=== PATIENT | female | born 1980 | race Caucasian/White ===

== ENCOUNTER 2020-12-11 14:37 | Emergency (ER) | payer MEDICARE, SELFPAY ==
[2020-12-11 14:40] VITALS: BP 106/66; PULSE 88; RESP 14; TEMP 36.9; O2SAT 99; BMI 33.0
--- NOTE | 2020-12-11 14:44 | DI.RAD.S_ITS ---
PROCEDURE: XR KNEE RT 3V INDICATIONS: knee pain and swelling TECHNIQUE: 3 views of the knee were acquired. COMPARISON: None. FINDINGS: Bones: No fractures or dislocations. No suspicious bony lesions. Soft tissues: Minimal joint effusion. No suspicious soft tissue calcifications. IMPRESSION: No visualized acute fracture or dislocation. However, if clinical concern and/or pain persist, short interval imaging followup in 7-10 days is recommended, as occult injury cannot be definitively excluded. Dictated by: Theresa Garcia M.D. on 12/11/2020 at 16:05 Approved by: Theresa Garcia M.D. on 12/11/2020 at 16:07
[2020-12-11] MEDS: KETOROLAC 30 MG/ML VIAL IM (15:10)
[2020-12-11] MEDS: LIDOCAINE PATCH 1 EACH ADH..PATCH TOP (15:11)
--- NOTE | 2020-12-11 17:04 | ED_ITS ---
HPI - Extremity Problem <AZIZA Maher - Last Filed: 12/11/20 17:11> General Chief complaint: Extremity Problem,Nontraumatic Stated complaint: rt knee pain and swelling [id number] Time Seen by Provider: 12/11/20 14:41 Source: patient Mode of arrival: Ambulatory Limitations: no limitations History of Present Illness HPI Narrative: Smoker who presents with a chief complaint of right knee pain and swelling. She states the pain is on the outside, worse with motion. She has been going to the gym, doing squats and lunges. She denies any specific recent injury, though notes that she has remote injury of twisting her knee. She has been using ibuprofen, last taken yesterday. States that she had an x-ray taken many years ago. Related Data Previous Rx's Medication Instructions Recorded ketorolac 10 mg tablet 10 mg PO TID PRN 5 Days #15 tab 12/11/20 lidocaine 5 % topical patch 1 patch TOPICAL DAILY PRN #15 ea 12/11/20 Allergies Allergy/AdvReac Type Severity Reaction Status Date / Time No Known Drug Allergies Allergy Verified 12/11/20 14:45 Review of Systems <AZIZA Maher - Last Filed: 12/11/20 17:11> Review of Systems Narrative: GENERAL: Denies chills, fatigue, malaise, fever, sweats. HEENT: Denies sinus pain, ear pain, sore throat, difficulty swallowing, dizziness. RESPIRATORY: Denies dyspnea, cough, wheezing, hemoptysis, sputum. CARDIOVASCULAR: Denies chest pain, palpitations, orthopnea, edema, GASTROINTESTINAL: Denies nausea, vomiting, abdominal pain, diarrhea, constipation, melena. : Denies dysuria, frequency, incontinence, hematuria, urinary retention. MUSCULOSKELETAL: See HPI SKIN: Denies rash, skin lesions, or other NEUROLOGIC: Denies weakness, headache, numbness, change in speech, confusion, seizures, incoordination. PSYCHIATRIC: No concerning psychosocial issues. 12 point review of systems is negative except for those stated above Patient History <AZIZA Maher - Last Filed: 12/11/20 17:11> Social History Smoking Status: Current every day smoker Smoking Status: Current every day smoker tobacco type: vaping alcohol intake frequency: holidays/special occasions only Substance Use Type: does not use Exam <AZIZA Maher Last Filed: 12/11/20 17:11> Narrative Exam Narrative: GENERAL: This is a well-nourished, well-developed patient, in no acute distress HEAD: Atraumatic. Normocephalic. No temporal or scalp tenderness. EYES: Pupils equal round and reactive. Extraocular motions intact. No scleral icterus. No injection or drainage. ENT: Nose without bleeding, purulent drainage or septal hematoma. Wearing a mask. Airway patent. NECK: Trachea midline. No JVD or lymphadenopathy. Supple, nontender, no meningeal signs. CARDIOVASCULAR: Regular rate and rhythm RESPIRATORY: No cough. No increased respiratory effort. No accessory muscle use. EXTREMITIES: Pain palpation of lateral aspect of right knee, just lateral to patella, also tender to palpation distal to patella. Able to lift entire right leg off of stretcher. Able to flex and extend leg fully. No instability palpated on varus, valgus, anterior posterior drawer test. No clicking or pain on Joseph's. Positive pedal pulses on right foot. NEURO: AOx3. SKIN: No rash or erythema on visible skin Initial Vital Signs Initial Vital Signs: Vital Signs Temperature 98.4 F 12/11/20 14:40 Pulse Rate 88 12/11/20 14:40 Respiratory Rate 14 12/11/20 14:40 Blood Pressure 106/66 12/11/20 14:40 Pulse Oximetry 99 12/11/20 14:40 <Vic Torrez DO - Last Filed: 12/11/20 17:34> Initial Vital Signs Initial Vital Signs: Vital Signs Temperature 98.4 F 12/11/20 14:40 Pulse Rate 88 12/11/20 14:40 Respiratory Rate 14 12/11/20 14:40 Blood Pressure 106/66 12/11/20 14:40 Pulse Oximetry 99 12/11/20 14:40 Scores <AZIZA Maher Last Filed: 12/11/20 17:11> GCS [place] coma scale eye opening: Spontaneous [place] coma scale verbal response: Orientated [place] coma scale motor response: Obey commands [place] coma scale total score: 15 <Vic Torrez DO - Last Filed: 12/11/20 17:34> GCS [place] coma scale total score: 15 Course <AZIZA Maher Filed: 12/11/20 17:11> Orders Ordered: ED Orders 12/11/20 14:44 XR knee RT 3V Stat Discontinued Medications Ketorolac Tromethamine (Ketorolac 30 Mg/Ml Vial) 30 mg IM NOW ONE Stop: 12/11/20 14:48 Last Admin: 12/11/20 15:10 Dose: 30 mg Documented by: DOMINIQUE Lidocaine (Lidocaine Patch 1 Each Adh..Patch) 1 each TOP NOW ONE Stop: 12/11/20 14:48 Last Admin: 12/11/20 15:11 Dose: 1 each Documented by: DOMINIQUE Vital Signs Vital signs: Vital Signs - 8 hr 12/11/20 14:40 Temperature 98.4 F Pulse Rate 88 Respiratory Rate 14 Blood Pressure 106/66 Pulse Oximetry 99 <Vic Torrez DO - Last Filed: 12/11/20 17:34> Orders Ordered: ED Orders 12/11/20 14:44 XR knee RT 3V Stat Discontinued Medications Ketorolac Tromethamine (Ketorolac 30 Mg/Ml Vial) 30 mg IM NOW ONE Stop: 12/11/20 14:48 Last Admin: 12/11/20 15:10 Dose: 30 mg Documented by: DOMINIQUE Lidocaine (Lidocaine Patch 1 Each Adh..Patch) 1 each TOP NOW ONE Stop: 12/11/20 14:48 Last Admin: 12/11/20 15:11 Dose: 1 each Documented by: DOMINIQUE Vital Signs Vital signs: Vital Signs - 8 hr 12/11/20 14:40 Temperature 98.4 F Pulse Rate 88 Respiratory Rate 14 Blood Pressure 106/66 Pulse Oximetry 99 MDM - Extremity (Nontraumatic) <AZIZA Maher - Last Filed: 12/11/20 17:11> Imaging Data Extremity x-ray #1: Radiologist's Impression: [address] [place] [id number] XRay Report Signed Patient: Taylor Colby MR#: [id number] : 1980 Acct:[id number] Age/Sex: 39 / F Date of Service: 12/11/20 Loc: ED Accession Number: [id number] ?? Procedure: XR knee RT 3V Ordering Provider: Christina Perea PROCEDURE:? XR KNEE RT 3V ? INDICATIONS:? knee pain and swelling ? TECHNIQUE:? 3 views of the knee were acquired.? ? COMPARISON:? None. ? FINDINGS:? ? Bones:? No fractures or dislocations.? No suspicious bony lesions.? ? Soft tissues:? Minimal joint effusion.? No suspicious soft tissue calcifications.? ? ? IMPRESSION:? No visualized acute fracture or dislocation. However, if clinical concern and/or pain persist, short interval imaging followup in 7-10 days is recommended, as occult injury cannot be definitively excluded. ? ? Dictated by: Theresa Garcia M.D. on 12/11/2020 at 16:05 ? ? Approved by: Theresa Garcia M.D. on 12/11/2020 at 16:07?? MDM Narrative Medical decision making narrative: The patient is a 31-year-old female who presents with a chief complaint of right knee pain for the past several days. She is neurovascularly intact. She is ambulatory. X-ray is no acute findings. She feels improved after the above-stated therapies. She states that she does not want us to rapid here, she will do that at home. Discussed at length rest ice compression elevation, prescription provided, discussed at length follow up with primary care provider in the next few days. Contact given to [facility] health human resources office assistant. Patient has no questions or concerns upon discharge states understanding return precautions as well as follow-up care. Discharge Plan Departure Patient Disposition: Home Clinical Impression: Knee pain, right Qualifiers: Chronicity: acute Qualified Code(s): M25.561 - Pain in right knee Instructions: How To Perform RICE (Rest, Ice, Compress, Elevate), DI for Knee Pain Activity Restrictions/Additional Instructions: As I discussed, your x-ray shows no acute fracture. This does not rule out a soft tissue injury such as a ligament or tendon injury. It is important that you follow up with primary care provider, especially if worsening or no improvement. There can be fractures that did not show up on initial x-ray. Please use rest ice compression elevation. I sent 2 prescriptions to [facility] [place]. This includes the lidocaine pain patch which she can apply to your knee for 12 hours at a time. I also sent a prescription of ketorolac or Toradol. This is an NSAID. Do not combine with any other NSAIDs such as ibuprofen Aleve etcetera please take this with food. Please follow up with primary care provider. I have given contact information to the [facility] human resources office assistant, who can help you identify a primary care provider accepting new patients Prescriptions: New lidocaine 5 % adhesive patch,medicated 1 patch topical DAILY PRN (Reason: pain) Qty: 15 RF: 0 ketorolac 10 mg tablet 10 mg PO TID PRN (Reason: pain) 5 Days Qty: 15 RF: 0 Referrals: [facility] [Outside] <Vic Torrez, DO - Last Filed: 12/11/20 17:34> Cosign ED Attending Cosignature Attestation: Dr Torrez Co-Sign Statement: I was available for consultation during this patient's emergency department visit. This chart is signed by myself for administrative purposes only. I did not have direct contact with this patient during this visit. They were seen independently by the APC.
== END 2020-12-11 17:04 | disposition home or self-care (01) ==
PROVIDERS: Emergency Provider Nurse Practitioner Family
DX: M25.561 Pain in right knee (principal)
CPT/HCPCS: 73562; 99283; 99284; J1885

== ENCOUNTER 2021-04-21 14:02 | Emergency (ER) | payer MEDICARE, OTHER, SELFPAY ==
[2021-04-21 14:10] VITALS: BP 146/90; PULSE 95; RESP 18; TEMP 36.7; O2SAT 99
[2021-04-21 14:44] LABS: COVID19 -Nasal RAPID Negative (Negative)
--- NOTE | 2021-04-21 15:21 | ED.HA ---
HPI - Headache <Eduard Ivy PA-C - Last Filed: 04/21/21 19:43> General Chief Complaint: Headache Stated Complaint: Headache,Cough,Chest Pain,COVID Exposure Time Seen by Provider: 04/21/21 15:15 Mode of arrival: Ambulatory History of Present Illness HPI Narrative: Patient is a 40-year-old female presenting to the emergency department today for a COVID-19 test. Patient states that she has been exposed to family with COVID-19, noting that her knees was recently diagnosed. She states that she has experienced a persistent headache for the past few days. Patient denies fever, chills, chest pain, cough, shortness of breath, nausea, vomiting, diarrhea, abdominal pain, dysuria, hematuria, sore throat, earache, or any other concerning symptoms. No further concerns were voiced at this time. Related Data Previous Rx's Medication Instructions Recorded lidocaine 5 % topical patch 1 patch TOPICAL DAILY PRN #15 ea 12/11/20 Allergies Allergy/AdvReac Type Severity Reaction Status Date / Time No Known Drug Allergies Allergy Verified 12/11/20 14:45 Review of Systems <Eduard Ivy PA-C - Last Filed: 04/21/21 19:43> Constitutional Constitutional: Denies chills, Denies fatigue, Denies fever(s), Denies frequent falls, Reports headache(s), Denies lethargy and Denies weakness Eyes Eyes: Denies loss of vision ENT Ears, Nose, Mouth, and Throat: Denies change in voice, Denies dizziness, Reports headache(s), Denies neck pain, Denies sore throat and Denies throat swelling Cardiovascular Cardiovascular: Denies chest pain, Denies irregular heart rhythm, Denies lightheadedness, Denies palpitations, Denies dyspnea, Denies dyspnea on exertion and Denies orthopnea Respiratory Respiratory: Denies cough, Denies dyspnea, Denies dyspnea on exertion and Denies wheezing Gastrointestinal Gastrointestinal: Denies abdominal pain, Denies change in bowel habits, Denies diarrhea, Denies nausea and Denies vomiting Genitourinary Genitourinary: Denies hematuria, Denies flank pain, Denies urinary incontinence and Denies urinary urgency Musculoskeletal Musculoskeletal: Denies back pain, Denies muscle weakness, Denies neck pain, Denies numbness and Denies tingling Integumentary/Breasts Skin/Breast: Denies pruritus, Denies erythema, Denies rash and Denies wounds Neurologic Neurologic: Denies behavioral changes, Denies confusion, Denies dizziness, Denies frequent falls, Reports headache(s), Denies loss of vision, Denies numbness, Denies tingling and Denies weakness Psychiatric Psychiatric: Denies behavioral changes and Denies confusion Endocrine Endocrine: Denies fatigue and Denies palpitations Allergic/Immunologic Allergic/Immunologic: Denies throat swelling and Denies wheezing Patient History <Eduard Ivy PA-C - Last Filed: 04/21/21 19:43> Social History Smoking Status: Current every day smoker Smoking Status: Current every day smoker tobacco type: vaping alcohol intake frequency: holidays/special occasions only Substance Use Type: does not use Exam <Eduard Ivy PA-C - Last Filed: 04/21/21 19:43> Narrative Exam Narrative: GENERAL: 40 year old patient appears stated age. Well-developed patient, in no acute distress. HEAD: Atraumatic. Normocephalic. EYES: Pupils equal round and reactive. Extraocular motions intact. No scleral icterus. No injection or drainage. ENT: Nose without bleeding, purulent drainage. Throat without erythema, tonsillar hypertrophy or exudate. Airway patent. NECK: Trachea midline. Non tender CARDIOVASCULAR: Regular rate and rhythm without murmurs, gallops, or rubs. RESPIRATORY: Clear to auscultation. Breath sounds equal bilaterally. No wheezes, rales, or rhonchi. GASTROINTESTINAL: Abdomen soft, non-tender, nondistended. EXTREMITIES: No edema or joint tenderness. BACK: Nontender without deformity or crepitance. No flank tenderness. NEURO: AOx3. SKIN: No rash or erythema of visible areas Initial Vital Signs Initial Vital Signs: Vital Signs Temperature 98.1 F 04/21/21 14:10 Pulse Rate 95 H 04/21/21 14:10 Respiratory Rate 18 04/21/21 14:10 Blood Pressure 146/90 H 04/21/21 14:10 Pulse Oximetry 99 04/21/21 14:10 <Radha Obregon DO - Last Filed: 04/22/21 07:16> Initial Vital Signs Initial Vital Signs: Vital Signs Temperature 98.1 F 04/21/21 14:10 Pulse Rate 95 H 04/21/21 14:10 Respiratory Rate 18 04/21/21 14:10 Blood Pressure 146/90 H 04/21/21 14:10 Pulse Oximetry 99 04/21/21 14:10 Course <Eduard Ivy PA-C - Last Filed: 04/21/21 19:43> Course Course Narrative: COVID-19 swab ordered. Orders Ordered: ED Orders 04/21/21 14:29 COVID19 -Nasal swab/Pre-Proc Stat Vital Signs Vital signs: Vital Signs - 8 hr 04/21/21 14:10 Temperature 98.1 F Pulse Rate 95 H Respiratory Rate 18 Blood Pressure 146/90 H Pulse Oximetry 99 <Radha Obregon DO - Last Filed: 04/22/21 07:16> Orders Ordered: ED Orders 04/21/21 14:29 COVID19 -Nasal swab/Pre-Proc Stat Vital Signs Vital signs: Vital Signs - 8 hr 04/21/21 14:10 Temperature 98.1 F Pulse Rate 95 H Respiratory Rate 18 Blood Pressure 146/90 H Pulse Oximetry 99 MDM - Headache <Eduard Ivy PA-C - Last Filed: 04/21/21 19:43> Lab Data Labs: Lab Results 04/21/21 Range/Units 14:29 SARS-CoV-2 (PCR) Negative (Negative) MDM Narrative Medical decision making narrative: To consider viral upper respiratory infection versus COVID-19 versus tension headache versus cluster headache versus migraine headache. Overall physical examination history reassuring. Patient states that she is feeling well otherwise and is just looking to rule out COVID-19. Discussed negative result of COVID-19 test with patient today. Recommended that she follow-up with a primary care provider in the future if she has any concerns. Patient expresses understanding and agrees to plan. Strict return precautions were discussed with the patient prior to discharge. At this time patient is stable and ready for discharge. <Radha Obregon DO - Last Filed: 04/22/21 07:16> Lab Data Labs: Lab Results 04/21/21 Range/Units 14:29 SARS-CoV-2 (PCR) Negative (Negative) Discharge Plan Departure Patient Disposition: Home Clinical Impression: COVID-19 ruled out Instructions: DI for COVID-19 (Suspected or Confirmed ) Activity Restrictions/Additional Instructions: *You have been diagnosed with COVID-19 ruled out *What to do: *Please continue to take your regular medications as directed. [ ] New medication prescriptions sent to your pharmacy: [ ] [ ] New medication written as a paper prescription [X] No new medications given COVID-19 test performed in the emergency department today returned negative. I recommend quarantine yourself away from COVID positive family members as best as possible. Please follow-up with the primary care provider for further evaluation. Do not hesitate to return to the emergency department if you experience increased shortness of breath, fever, worsening cough, or any other concerning symptoms. *Please follow up with your primary care provider in 2-3 days, call for an appointment. Let them know you were seen in the Emergency Department and that we ask that you be seen in follow up. We will electronically transmit a record of today's note if your PCP is in our system. *If you do not have a primary care provider please contact the [facility] Resource line at [phone]. They will ask some questions about your medical history and help get you set up with a doctor in the community. *Return to Emergency Department if you should have any new, worsening or concerning symptoms, such as fever greater than 101 F, shaking chills, shortness of breath, persistent cough, persistent vomiting or other bothersome symptoms. Prescriptions: No Action lidocaine 5 % adhesive patch,medicated 1 patch topical DAILY PRN (Reason: pain) Qty: 15 0RF Rx Instructions: leave on most painful area for up to 12 hrs <Radha Obregon, - Last Filed: 04/22/21 07:16> [facility] Charlesature Attestation: I was immediately available in the department for consultation. Documentation has been reviewed. I agree with assessment and plan.
== END 2021-04-21 15:27 | disposition home or self-care (01) ==
PROVIDERS: Emergency Medicine; Emergency Provider Physician Assistant
DX: R51.9 Headache, unspecified (principal); Z20.822 Contact with and (suspected) exposure to COVID-19
CPT/HCPCS: 87635; 99281; 99282; C9803